=== PATIENT | male | born 1965 | race Two or more races ===

== ENCOUNTER 2022-06-07 17:39 | Emergency (ER) | payer SELFPAY ==
[~2022-06-07] VITALS: Ht 167.6 cm; Wt 83.7 kg
[2022-06-07] MEDS ORDERED: KETOROLAC TROMETH 30 MG/ML 1ML VIAL IM ONE (21:30)
[2022-06-07 21:52] VITALS: BP 150/96
== END 2022-06-07 22:30 | disposition home or self-care (01) ==
LOC: ER 17:39
DX: S49.92XA Unspecified injury of left shoulder and upper arm, initial encounter (principal); W17.89XA Other fall from one level to another, initial encounter; Y93.89 Activity, other specified; Y92.89 Other specified places as the place of occurrence of the external cause; Y99.8 Other external cause status
CPT/HCPCS: 73030; 96372; 99283; J1885

== ENCOUNTER 2023-02-17 11:32 | Emergency (ER) | payer SELFPAY ==
[~2023-02-17] VITALS: Ht 167.6 cm; Wt 85.5 kg
[2023-02-17] MEDS ORDERED: ACETAMINOPHEN 500 MG TAB PO ONE ×2 (11:57→12:00)
[2023-02-17 20:20] VITALS: BP 131/92; PULSE 97; RESP 16; TEMP 98.4; O2SAT 98
[2023-02-17 21:20] LABS: COVID19 ANTIGEN SOFIA FIA NEGATIVE (NEGATIVE)
[2023-02-17 22:25] LABS: Rapid Influenza A Negative (Negative); Rapid Influenza B Negative (Negative)
== END 2023-02-17 22:50 | disposition left against medical advice (07) ==
LOC: ER 11:32
DX: J06.9 Acute upper respiratory infection, unspecified (principal); Z20.822 Contact with and (suspected) exposure to COVID-19; Z53.29 Procedure and treatment not carried out because of patient's decision for other reasons
CPT/HCPCS: 36415; 71046; 87426; 87804